=== PATIENT | female | born 1975 | race Caucasian/White ===

== ENCOUNTER 2017-04-27 14:22 | Emergency (ER) | payer BC ==
[2017-04-27 14:59] VITALS: BP 141/72
[2017-04-27] MEDS ORDERED: Lidocaine 1% 30 ML SDV INJECT ONE (15:11)
[2017-04-27] MEDS ORDERED: Bacitracin Oint 1 GM U/D Packet TOP ONE (15:11)
--- NOTE | 2017-04-27 15:16 | EDM.PDOC ---
ED HPI GENERAL MEDICAL PROBLEM - General Chief Complaint: Lower Extremity Injury/Pain Stated Complaint: [id number] MRSA IN LEG GETTING WORSE Time Seen by Provider: 04/27/17 15:05 Source of Information: Reports: Patient History Limitations: Reports: No Limitations - History of Present Illness INITIAL COMMENTS - FREE TEXT/NARRATIVE: This 41 yo female patient reports to the ED with an abscess to her right distal upper leg. The patient reports she was seen in the [facility] yesterday and was started on an antibiotic. The patient reports she has had 2 doses of Bactrim , but has continued to have increased pain. Onset Date: 04/23/17 Duration: Constant, Getting Worse Location: Reports: Lower Extremity, Right Quality: Reports: Ache, Dull Severity: Moderate Improves with: Reports: None Worsens with: Reports: None Associated Symptoms: Reports: No Other Symptoms Right Middle Leg Pain Score (Numeric/FACES): 6 - Related Data Allergies Allergy/AdvReac Type Severity Reaction Status Date / Time No Known Allergies Allergy Verified 04/27/17 14:55 Past Medical History - Past Health History Medical/Surgical History: Denies Medical/Surgical History - Infectious Disease History Infectious Disease History: Reports: MRSA - Past Surgical History Female Surgical History: Reports: Tubal Ligation, Other (See Below) Other Female Surgeries/Procedures: bladder mesh Social & Family History - Family History Family Medical History: Noncontributory - Tobacco Use Smoking Status *Q: Never Smoker Second Hand Smoke Exposure: No - Caffeine Use Caffeine Use: Reports: None - Recreational Drug Use Recreational Drug Use: No - Living Situation & Occupation Living situation: Reports: Occupation: Employed Review of Systems - Review of Systems Review Of Systems: ROS reveals no pertinent complaints other than HPI. ED EXAM, GENERAL - Physical Exam Exam: See Below Exam Limited By: No Limitations General Appearance: Alert, WD/WN, Moderate Distress Eye Exam: Bilateral Eye: EOMI, Normal Inspection, PERRL Ears: Normal External Exam, Normal Canal, Hearing Grossly Normal, Normal TMs Nose: Normal Inspection, Normal Mucosa, No Blood Throat/Mouth: Normal Inspection, Normal Lips, Normal Teeth, Normal Gums, Normal Oropharynx, Normal Voice, No Airway Compromise Head: Atraumatic, Normocephalic Neck: Normal Inspection, Supple, Non-Tender, Full Range of Motion Respiratory/Chest: No Respiratory Distress, Lungs Clear, Normal Breath Sounds, No Accessory Muscle Use, Chest Non-Tender Cardiovascular: Normal Peripheral Pulses, Regular Rate, Rhythm, No Edema, No Gallop, No JVD, No Murmur, No Rub GI/Abdominal: Normal Bowel Sounds, Soft, Non-Tender, No Organomegaly, No Distention, No Abnormal Bruit, No Mass (Female) Exam: Deferred Rectal (Female) Exam: Deferred Back Exam: Normal Inspection, Full Range of Motion, NT Extremities: Normal Range of Motion, No Pedal Edema, Normal Capillary Refill, Other (abscess to right inner distal thigh) Neurological: Alert, Oriented, CN II-XII Intact, Normal Cognition, Normal Gait, Normal Reflexes, No Motor/Sensory Deficits Psychiatric: Normal Affect, Normal Mood Skin Exam: Erythema, Increased Warmth Lymphatic: No Adenopathy ED TRAUMA EXTREMITY PROCEDURES - I&D Site: Right distal medial thigh Skin Prep: Providone-Iodine (Betadine), Isopropyl Alcohol (Alcohol) Local Anesthesia: Lidocaine: 1% Plain Local Anesthetic Volume: 4cc Area Incised With: 15 Blade Drainage: Purulent, Bloody, Moderate Amount Packed With: None Sterile Dressinx4(s) Complications: No Course - Vital Signs Last Recorded V/S: Last Vital Signs Temp 37.1 C 04/27/17 14:56 Pulse 76 04/27/17 14:56 Resp 16 04/27/17 14:56 BP 141/72 H 04/27/17 14:56 Pulse Ox 100 04/27/17 14:56 - Orders/Labs/Meds Orders: Active Orders 24 hr Category Date Time Status CULTURE BLOOD [BC] Stat Lab 04/27/17 15:42 Results CULTURE BLOOD [BC] Stat Lab 04/27/17 15:57 Received Blood Culture x2 Reflex Set [OM.PC] Stat Oth 04/27/17 15:35 Ordered Labs: Laboratory Tests 04/27/17 04/27/17 04/27/17 Range/Units 15:42 15:42 15:42 WBC 9.8 (5.0-10.0) 10^3/uL RBC 4.61 (4.2-5.4) 10^6/uL Hgb 12.1 (12.0-16.0) g/dL Hct 37.1 (37.0-47.0) % MCV 80.5 (80-100) fL MCH 26.2 L (27.0-34.0) pg MCHC 32.6 L (33.0-35.0) g/dL Plt Count 239 (150-450) 10^3/uL Neut % (Auto) 60.6 (42.2-75.2) % Lymph % (Auto) 31.3 (20.5-50.1) % Atkinson % (Auto) 7.5 (2-8) % Eos % (Auto) 0.4 L (1.0-3.0) % Baso % (Auto) 0.2 (0.0-1.0) % Sodium 135 (135-145) mmol/L Potassium 3.0 L (3.6-5.0) mmol/L Chloride 100 L (101-111) mmol/L Carbon Dioxide 22.0 (21.0-31.0) mmol/L Anion Gap 16.0 BUN 10 (7-18) mg/dL Creatinine 1.0 (0.6-1.3) mg/dL Est Cr Clr Drug Dosing 61.24 mL/min Estimated GFR (MDRD) > 60 BUN/Creatinine Ratio 10.00 Glucose 79 (74-105) mg/dL Lactic Acid 1.4 (0.5-2.2) mmol/L Calcium 9.3 (8.4-10.2) mg/dl Total Bilirubin 0.5 (0.2-1.0) mg/dL AST 26 (10-42) IU/L ALT 14 (10-60) IU/L Alkaline Phosphatase 54 (42-121) IU/L Total Protein 7.8 (6.7-8.2) g/dl Albumin 4.4 (3.2-5.5) g/dl Globulin 3.4 Albumin/Globulin Ratio 1.29 Meds: Medications Discontinued Medications Generic Name Dose Route Start Last Admin Trade Name Freq PRN Reason Stop Dose Admin Bacitracin 1 dose 04/27/17 15:11 04/27/17 15:26 Bacitracin Oint 1 Gm TOP 04/27/17 15:12 1 dose ONETIME ONE Administration Vancomycin HCl 1.5 gm/ Sodium 500 mls @ 334 mls/hr 04/27/17 15:36 04/27/17 16 :00 Chloride IV 04/27/17 17:05 334 mls/hr ONETIME ONE Administration Lidocaine HCl 30 ml 04/27/17 15:11 10/19/17 15:26 Xylocaine-Mpf 1% INJECT 04/27/17 15:12 30 ml ONETIME ONE Administration Departure - Departure Time of Disposition: 17:30 Disposition: Home, Self-Care 01 Condition: Fair Clinical Impression: Abscess - Discharge Information Instructions: Abscess, [id number] Forms: ED Department Discharge Care Plan Goals: The patient was advised of the examination and lab results during the visit. The patient's abscess was incised and drained while in the ED. The patient was given an IV dose of Vancomycin while in the ED. The patient was encouraged to continue with the Bactrim as directed. The patient should follow-up with her primary care facility or return to the ED for any additional symptoms or concerns. - My Orders Last 24 Hours: My Active Orders 04/27/17 15:35 Blood Culture x2 Reflex Set [OM.PC] Stat 04/27/17 15:42 CULTURE BLOOD [BC] Stat 04/27/17 15:57 CULTURE BLOOD [BC] Stat - Assessment/Plan Last 24 Hours: My Active Orders 04/27/17 15:35 Blood Culture x2 Reflex Set [OM.PC] Stat 04/27/17 15:42 CULTURE BLOOD [BC] Stat 04/27/17 15:57 CULTURE BLOOD [BC] Stat
[2017-04-27] MEDS ORDERED: Vancomycin 1.5 GM in Sodium Chloride 0.9% 500 ML IV ONE (15:36)
[2017-04-27 16:18] LABS: CHLORIDE,CL 100 mmol/L (101-111); SODIUM,NA 135 mmol/L (135-145)
== END 2017-04-27 17:37 | disposition home or self-care (01) ==
LOC: DL.ED 14:22
DX: L02.415 Cutaneous abscess of right lower limb (principal); Z86.14 Personal history of Methicillin resistant Staphylococcus aureus infection
CPT/HCPCS: 10060; 36415; 80053; 83605; 85025; 87040; 87070; 87077; 87186; 96365; 96366; 99283; J3370; J7040

== ENCOUNTER 2017-08-22 18:45 | Emergency (ER) | payer BC ==
[2017-08-22] MEDS ORDERED: Acetaminophen/HYDROcodone 325-10 MG Tab PO ONE ×2 (18:46→23:21)
[2017-08-22 19:26] VITALS: BP 137/88
[2017-08-22 22:40] LABS: CHLORIDE,CL 101 mmol/L (101-111); SODIUM,NA 135 mmol/L (135-145)
[2017-08-22] MEDS ORDERED: Iopamidol 612 MG/ML 75 ML Bottle IVPUSH ONE (22:47)
[2017-08-22] MEDS ORDERED: Ketorolac 30 MG/ML SDV IVPUSH ONE (23:18)
--- NOTE | 2017-08-22 23:34 | EDM.PDOC ---
ED HPI GENERAL MEDICAL PROBLEM - General Chief Complaint: Abdominal Pain Stated Complaint: [id number] LOW ABDOMIN PAIN Time Seen by Provider: 08/22/17 22:30 Source of Information: Reports: Patient - History of Present Illness INITIAL COMMENTS - FREE TEXT/NARRATIVE: lower abdominal pain on left worsening over past 4-5 days. No fevers, NO nausea , vomiting or diarrhea. Prior surgery with bladder mesh, Left Lower Abdomen Pain Score (Numeric/FACES): 8 - Related Data Allergies Allergy/AdvReac Type Severity Reaction Status Date / Time No Known Allergies Allergy Verified 08/22/17 19:13 Home Meds: Home Meds . [No Known Home Meds] 08/22/17 [History] Past Medical History - Past Health History Medical/Surgical History: Denies Medical/Surgical History Genitourinary History: Reports: Urinary Incontinence - Infectious Disease History Infectious Disease History: Reports: MRSA - Past Surgical History Female Surgical History: Reports: Tubal Ligation, Other (See Below) Other Female Surgeries/Procedures: bladder mesh Social & Family History - Family History Family Medical History: Noncontributory - Tobacco Use Smoking Status *Q: Unknown Ever Smoked Second Hand Smoke Exposure: No - Caffeine Use Caffeine Use: Reports: Tea - Recreational Drug Use Recreational Drug Use: No - Living Situation & Occupation Living situation: Reports: Occupation: Employed ED ROS GENERAL - Review of Systems Review Of Systems: ROS reveals no pertinent complaints other than HPI. ED EXAM, GI/ABD - Physical Exam Exam: See Below Exam Limited By: No Limitations General Appearance: Alert, Mild Distress Eyes: Bilateral: EOMI Ears: Normal External Exam Nose: Normal Inspection Throat/Mouth: Normal Inspection Head: Atraumatic, Normocephalic Neck: Normal Inspection Respiratory/Chest: No Respiratory Distress, Lungs Clear, Normal Breath Sounds Cardiovascular: Normal Peripheral Pulses, Regular Rate, Rhythm GI/Abdominal Exam: Normal Bowel Sounds, Soft, Tender (generalized greater LLQ). No: Distended, Guarding Back Exam: Normal Inspection Extremities: Normal Inspection Neurological: Alert, Oriented, Normal Cognition Psychiatric: Normal Affect Skin Exam: Warm, Dry, Intact, Normal Color Course - Vital Signs Last Recorded V/S: Last Vital Signs Temp 99.4 F 08/22/17 19:25 Pulse 75 08/22/17 19:25 Resp 18 08/22/17 19:25 BP 137/88 08/22/17 19:25 Pulse Ox 100 08/22/17 19:25 - Orders/Labs/Meds Labs: Laboratory Tests 08/22/17 08/22/17 08/22/17 Range/Units 19:12 19:12 22:07 WBC 12.3 H (5.0-10.0) 10^3/uL RBC 4.73 (4.2-5.4) 10^6/uL Hgb 12.4 (12.0-16.0) g/dL Hct 38.0 (37.0-47.0) % MCV 80.3 (80-100) fL MCH 26.2 L (27.0-34.0) pg MCHC 32.6 L (33.0-35.0) g/dL Plt Count 249 (150-450) 10^3/uL Neut % (Auto) 58.8 (42.2-75.2) % Lymph % (Auto) 34.2 (20.5-50.1) % Moca % (Auto) 6.4 (2-8) % Eos % (Auto) 0.5 L (1.0-3.0) % Baso % (Auto) 0.1 (0.0-1.0) % Sodium (135-145) mmol/L Potassium (3.6-5.0) mmol/L Chloride (101-111) mmol/L Carbon Dioxide (21.0-31.0) mmol/L Anion Gap BUN (7-18) mg/dL Creatinine (0.6-1.3) mg/dL Est Cr Clr Drug Dosing mL/min Estimated GFR (MDRD) BUN/Creatinine Ratio Glucose (74-105) mg/dL Lactic Acid (0.5-2.2) mmol/L Calcium (8.4-10.2) mg/dl Total Bilirubin (0.2-1.0) mg/dL AST (10-42) IU/L ALT (10-60) IU/L Alkaline Phosphatase (42-121) IU/L Total Protein (6.7-8.2) g/dl Albumin (3.2-5.5) g/dl Globulin Albumin/Globulin Ratio Amylase (28-100) U/L Lipase (22-51) U/L Urine Color Light yellow (YELLOW) Urine Appearance Clear (CLEAR) Urine pH 6.0 (5.0-9.0) Ur Specific Alger <= 1.005 (1.005-1.030) Urine Protein Negative (NEGATIVE) Urine Glucose (UA) Negative (NEGATIVE) Urine Ketones Negative (NEGATIVE) Urine Occult Blood Negative (NEGATIVE) Urine Nitrite Negative (NEGATIVE) Urine Bilirubin Negative (NEGATIVE) Urine Urobilinogen 0.2 (0.2-1.0) mg/dL Ur Leukocyte Esterase Small H (NEGATIVE) Urine RBC 0-5 /HPF Urine WBC 0-5 (0-5/HPF) /HPF Ur Epithelial Cells Rare /HPF Urine Bacteria Rare (0-FEW/HPF) /HPF Urine HCG, Qual Negative 08/22/17 08/22/17 08/22/17 Range/Units 22:07 22:07 22:07 WBC (5.0-10.0) 10^3/uL RBC (4.2-5.4) 10^6/uL Hgb (12.0-16.0) g/dL Hct (37.0-47.0) % MCV (80-100) fL MCH (27.0-34.0) pg MCHC (33.0-35.0) g/dL Plt Count (150-450) 10^3/uL Neut % (Auto) (42.2-75.2) % Lymph % (Auto) (20.5-50.1) % Moca % (Auto) (2-8) % Eos % (Auto) (1.0-3.0) % Baso % (Auto) (0.0-1.0) % Sodium 135 (135-145) mmol/L Potassium 3.9 (3.6-5.0) mmol/L Chloride 101 (101-111) mmol/L Carbon Dioxide 25.0 (21.0-31.0) mmol/L Anion Gap 12.9 BUN 15 (7-18) mg/dL Creatinine 0.9 (0.6-1.3) mg/dL Est Cr Clr Drug Dosing 68.05 mL/min Estimated GFR (MDRD) > 60 BUN/Creatinine Ratio 16.66 Glucose 91 (74-105) mg/dL Lactic Acid 0.8 (0.5-2.2) mmol/L Calcium 9.0 (8.4-10.2) mg/dl Total Bilirubin 0.4 (0.2-1.0) mg/dL AST 21 (10-42) IU/L ALT 14 (10-60) IU/L Alkaline Phosphatase 48 (42-121) IU/L Total Protein 7.5 (6.7-8.2) g/dl Albumin 4.2 (3.2-5.5) g/dl Globulin 3.3 Albumin/Globulin Ratio 1.27 Amylase 120 H (28-100) U/L Lipase 28 (22-51) U/L Urine Color (YELLOW) Urine Appearance (CLEAR) Urine pH (5.0-9.0) Ur Specific Alger (1.005-1.030) Urine Protein (NEGATIVE) Urine Glucose (UA) (NEGATIVE) Urine Ketones (NEGATIVE) Urine Occult Blood (NEGATIVE) Urine Nitrite (NEGATIVE) Urine Bilirubin (NEGATIVE) Urine Urobilinogen (0.2-1.0) mg/dL Ur Leukocyte Esterase (NEGATIVE) Urine RBC /HPF Urine WBC (0-5/HPF) /HPF Ur Epithelial Cells /HPF Urine Bacteria (0-FEW/HPF) /HPF Urine HCG, Qual Meds: Medications Discontinued Medications Generic Name Dose Route Start Last Admin Trade Name Freq PRN Reason Stop Dose Admin Hydrocodone Bitart/Acetaminophen 1 tab 08/22/17 23:21 08/22/17 23:27 [place] 325-10 Mg PO 08/22/17 23:22 1 tab ONETIME ONE Administration Hydrocodone Bitart/Acetaminophen Confirm 08/22/17 23:38 [place] 325-10 Mg Administered 08/22/17 23:39 Dose 2 tab .ROUTE .STK-MED ONE Iopamidol 75 ml 08/22/17 22:47 08/22/17 22:49 Isovue-300 (61%) IVPUSH 08/22/17 22:48 75 ml ONETIME ONE Administration Ketorolac Tromethamine 30 mg 08/22/17 23:18 08/22/17 23:28 Toradol IVPUSH 08/22/17 23:19 30 mg ONETIME ONE Administration - Radiology Interpretation Free Text/Narrative:: Abdomen Pelvis with contrast: Fluid density at right adenexa irregular in shape approximately 5x4cm is expected to reflect a summation of benign ovarian cysts and possibly physiogic free fluid. cyst. Irregular 2.6 x 3cm left adexexal fluid density with a soft thin tissue rim probably involuting corpus luteum Departure - Departure Time of Disposition: 23:32 Disposition: Home, Self-Care 01 Condition: Good Clinical Impression: Bilateral ovarian cysts Abdominal pain Qualifiers: Abdominal location: generalized Qualified Code(s): R10.84 - Generalized abdominal pain - Discharge Information Instructions: Ovarian Cyst, [id number] Referrals: PCP,Unobtain [Primary Care Provider] - Forms: ED Department Discharge Additional Instructions: ibuprofen 600mg every 6 hours as needed for moderate pain hydrocodone 10/325 one every 6 hours for severe pain #2 Clinic follow up 2-3 days [employer] appointment as scheduled tomorrow
[2017-08-22] MEDS ORDERED: Acetaminophen/HYDROcodone 325-10 MG Tab ONE (23:38)
== END 2017-08-22 23:49 | disposition home or self-care (01) ==
LOC: DL.ED 18:45
DX: N83.202 Unspecified ovarian cyst, left side (principal); N83.201 Unspecified ovarian cyst, right side; Z96.0 Presence of urogenital implants
CPT/HCPCS: 36415; 74177; 80053; 81001; 81025; 82150; 83605; 83690; 85025; 96374; 99284; A9270; J1885; Q9967

== ENCOUNTER 2019-09-18 06:42 | Day surgery (SDC) | payer BC ==
[~2019-09-18 06:42] MED LIST: Midazolam 1 MG/ML 2 ML SDV ONE; fentaNYL 100 MCG/2 ML SDV ONE
[2019-09-18] MEDS ORDERED: fentaNYL 100 MCG/2 ML SDV IV ONE ×3 (06:43→07:57)
[2019-09-18] MEDS ORDERED: Midazolam 1 MG/ML 2 ML SDV IV ONE ×10 (06:43→08:04)
[2019-09-18] MEDS ORDERED: Dextrose 5%-0.45% NaCl 1,000 ML IV SCH (07:30)
[2019-09-18] MEDS ORDERED: Sodium Chloride 0.9% 1,000 ML IV ONE (08:14)
[2019-09-18 11:02] VITALS: BP 123/73; PULSE 64
--- NOTE | 2019-09-18 13:59 | OR ---
DATE: 09/18/2019 PREOPERATIVE DIAGNOSIS: Intermittent rectal bleeding. POSTOPERATIVE DIAGNOSIS: Intermittent rectal bleeding. PROCEDURES: Total colonoscopy. ANESTHESIA: Conscious sedation with IV Versed and fentanyl. SPECIMEN: None. OPERATIVE FINDINGS: Diffuse melanosis coli, especially on the right side of the colon. No other abnormalities noted. INDICATIONS FOR PROCEDURE: This 44-year-old female has intermittent bright red rectal bleeding. She also has intermittent constipation. PROCEDURE IN DETAIL: After adequate preparation, a colonoscope was inserted into the rectum. This was easily passed all the way to the cecum. Confirmation of the cecum was made by visualization of the ileocecal valve and by palpation of the right lower quadrant. The bowel prep was adequate. There was some retained fluid. This was easily suctioned clear to be able to see the entire colon. She has no evidence of colitis, diverticulosis, masses, polyps, or internal hemorrhoids. Air was suctioned from the colon and the scope removed. [facility] /[id number]
== END 2019-09-18 10:20 | disposition home or self-care (01) ==
LOC: DL.ENDO 06:42
PROVIDERS: ATTEND Surgery
DX: K62.5 Hemorrhage of anus and rectum (principal)
CPT/HCPCS: 81025; G0121; J2250; J3010; J7030; J7042

== ENCOUNTER 2019-12-24 14:14 | Emergency (ER) | payer BC ==
[2019-12-24 14:46] VITALS: BP 124/69; PULSE 83
--- NOTE | 2019-12-24 15:20 | CR ---
EXAMINATION: Ankle Min 3V Lt SEX: Female AGE: 44 years CLINICAL HISTORY: 44-year-old female twisted ankle on stair. INTERPRETATION: Mild soft tissue swelling. No fracture or dislocation left ankle. Tibiotalar mortise joints symmetrically intact. No arthritic degenerative changes. Tiny heel spurs at insertion plantar aponeurosis and Achilles tendon of the os calcis. CONCLUSION: Sprain.
[2019-12-24] MEDS: Ibuprofen 600 MG Tab PO ONE ×2 (15:42→15:47)
--- NOTE | 2019-12-24 15:58 | EDM.PDOC ---
Scribed by Chasity Gaines 12/24/19 0653 for Thania Mac NP ED HPI GENERAL MEDICAL PROBLEM - General Chief Complaint: Lower Extremity Injury/Pain Stated Complaint: FELL/INJURED ANKLE Time Seen by Provider: 12/24/19 15:29 Source of Information: Reports: Patient, RN, RN Notes Reviewed History Limitations: Reports: No Limitations - History of Present Illness INITIAL COMMENTS - FREE TEXT/NARRATIVE: Patient presents to ER with complaint of left ankle pain. States she twisted her ankle going down the steps at home. States she rolled the ankle and landed on her buttocks. She rates her pain 7/10. Onset: Today Duration: Getting Worse Location: Reports: Lower Extremity, Left Quality: Reports: Ache Severity: Moderate Improves with: Reports: None Worsens with: Reports: None Associated Symptoms: Reports: No Other Symptoms - Related Data Allergies Allergy/AdvReac Type Severity Reaction Status Date / Time Latex, Natural Rubber Allergy Rash Verified 12/24/19 15:14 Home Meds: Home Meds Docusate Sodium [Stool Softener] 200 mg PO BID 09/16/19 [History] Mecobalamin [B12 Active] 500 mcg PO DAILY 09/16/19 [History] Venlafaxine [Effexor] 150 mg PO DAILY 09/16/19 [History] Ergocalciferol (Vitamin D2) [Vitamin D2] 50,000 units PO ASDIRECTED 09/17/19 [ History] Ferrous Sulfate [Iron] 325 mg PO DAILY 09/17/19 [History] Past Medical History - Past Health History Medical/Surgical History: Denies Medical/Surgical History HEENT History: Reports: Impaired Vision Cardiovascular History: Reports: None Respiratory History: Reports: None Gastrointestinal History: Reports: Chronic Constipation Genitourinary History: Reports: Urinary Incontinence [employer] History: Reports: Musculoskeletal History: Reports: None Neurological History: Reports: None Psychiatric History: Reports: Anxiety Endocrine/Metabolic History: Reports: Hypothyroidism, Obesity/BMI 30+, Vitamin D Deficiency, Other (See Below) Other Endocrine/Metabolic History: JUAN CARLOS'S THYROIDITIS Hematologic History: Reports: None Immunologic History: Reports: None Oncologic (Cancer) History: Reports: None Dermatologic History: Reports: None - Infectious Disease History Infectious Disease History: Reports: Chicken Pox, MRSA - Past Surgical History Head Surgeries/Procedures: Reports: None HEENT Surgical History: Reports: None Cardiovascular Surgical History: Reports: None Respiratory Surgical History: Reports: None GI Surgical History: Reports: None Female Surgical History: Reports: Cystoscopy, Tubal Ligation, Other (See Below) Other Female Surgeries/Procedures: bladder mesh Endocrine Surgical History: Reports: None Neurological Surgical History: Reports: Lumbar Spine Musculoskeletal Surgical History: Reports: None Oncologic Surgical History: Reports: None Dermatological Surgical History: Reports: None Social & Family History - Family History Family Medical History: Noncontributory - Tobacco Use Smoking Status *Q: Never Smoker - Caffeine Use Caffeine Use: Reports: None - Recreational Drug Use Recreational Drug Use: No - Living Situation & Occupation Living situation: Reports: Occupation: Employed Review of Systems - Review of Systems Review Of Systems: Comprehensive ROS is negative, except as noted in HPI. ED EXAM, GENERAL - Physical Exam Exam: See Below Exam Limited By: No Limitations General Appearance: Alert, Mild Distress Eye Exam: Bilateral Eye: EOMI, Normal Inspection, PERRL Ears: Normal External Exam, Normal Canal, Hearing Grossly Normal, Normal TMs Nose: Normal Inspection, Normal Mucosa, No Blood Throat/Mouth: Normal Inspection, Normal Lips, Normal Teeth, Normal Gums, Normal Oropharynx, Normal Voice, No Airway Compromise Head: Atraumatic, Normocephalic Neck: Normal Inspection, Supple, Non-Tender, Full Range of Motion Respiratory/Chest: No Respiratory Distress, Lungs Clear, Normal Breath Sounds, No Accessory Muscle Use, Chest Non-Tender Cardiovascular: Normal Peripheral Pulses, Regular Rate, Rhythm, No Edema, No Gallop, No JVD, No Murmur, No Rub GI/Abdominal: Normal Bowel Sounds, Soft, Non-Tender, No Organomegaly, No Distention, No Abnormal Bruit, No Mass (Female) Exam: Deferred Rectal (Female) Exam: Deferred Back Exam: Normal Inspection, Full Range of Motion, NT Extremities: Other (left ankle, decreased range of motion, and swelling) Neurological: Alert, Oriented, CN II-XII Intact, Normal Cognition, Normal Gait, Normal Reflexes, No Motor/Sensory Deficits Psychiatric: Normal Affect, Normal Mood Skin Exam: Warm, Dry, Intact, Normal Color, No Rash Lymphatic: No Adenopathy Course - Vital Signs Last Recorded V/S: Last Vital Signs Temp 98.1 F 12/24/19 14:41 Pulse 83 12/24/19 14:41 Resp 18 06/16/20 14:41 BP 124/69 12/24/19 14:41 Pulse Ox 99 12/24/19 14:41 - Orders/Labs/Meds Meds: Medications Discontinued Medications Generic Name Dose Route Start Last Admin Trade Name Jim PRN Reason Stop Dose Admin Ibuprofen 600 mg 12/24/19 15:34 12/24/19 15:47 Motrin PO 12/24/19 15:35 600 mg ONETIME ONE Administration - Radiology Interpretation Free Text/Narrative:: Left ankle: Sprain. See rad report. - Re-Assessments/Exams Free Text/Narrative Re-Assessment/Exam: 12/24/19 15:57 Patient declined crutches at this time. Departure - Departure Time of Disposition: 15:41 Disposition: Home, Self-Care 01 Condition: Fair Clinical Impression: Sprain of ankle, left Qualifiers: Encounter type: initial encounter Involved ligament of ankle: unspecified ligament Qualified Code(s): S93.402A - Sprain of unspecified ligament of left ankle, initial encounter - Discharge Information *PRESCRIPTION DRUG MONITORING PROGRAM REVIEWED*: No *COPY OF PRESCRIPTION DRUG MONITORING REPORT IN PATIENT NBA: No Instructions: Crutch Use, Adult, [id number], How to Use Cold Therapy, Easy-to -Read, Ankle Sprain, [id number], Muscle Strain, [id number], Elastic Bandage and RICE Therapy Forms: ED Department Discharge Additional Instructions: Elevate and Ice the ankle as tolerated Use crutches for the first few days Begin gradually trying to bear weight May use Tylenol and/or Ibuprofen as directed for pain Follow up with your primary care facility if no improvement Sepsis Event Note (ED) - Evaluation Sepsis Screening Result: No Definite Risk - Focused Exam Vital Signs: Vital Signs Temp Pulse Resp BP Pulse Ox 12/24/19 14:41 98.1 F 83 18 124/69 99 I have read and agree with the documentation that has been completed regarding this visit. By signing this record, I attest that the documentation was completed in my physical presence and is an accurate record of the encounter.
== END 2019-12-24 15:53 | disposition home or self-care (01) ==
LOC: DL.ED 14:14
DX: S93.402A Sprain of unspecified ligament of left ankle, initial encounter (principal); F41.9 Anxiety disorder, unspecified; E66.9 Obesity, unspecified; Z68.30 Body mass index [BMI] 30.0-30.9, adult; Z91.040 Latex allergy status; Z79.899 Other long term (current) drug therapy; X50.1XXA Overexertion from prolonged static or awkward postures, initial encounter; Y92.009 Unspecified place in unspecified non-institutional (private) residence as the place of occurrence of the external cause
CPT/HCPCS: 73610; 99283; A9270

== ENCOUNTER 2021-02-26 19:12 | Emergency (ER) | payer BC ==
[2021-02-26 19:36] VITALS: BP 155/89; PULSE 81
[2021-02-26] MEDS ORDERED: Bacitracin/Neomycin/Polymyxin B Oint 28.4 GM Tube TOP ONE (19:49)
--- NOTE | 2021-02-26 20:07 | EDM.PDOC ---
ED HPI GENERAL MEDICAL PROBLEM - General Chief Complaint: Wound Recheck Stated Complaint: LEFT LEG GOT BADGES WET, NEED SOMEONE TO LOOK AT I Time Seen by Provider: 02/26/21 20:02 - History of Present Illness INITIAL COMMENTS - FREE TEXT/NARRATIVE: Patient is an unfortunate 45-year-old female who presents emerged part today with complaint of left ankle/foot wound recheck. The patient reports that she had surgery on her ankle 8 days ago and reports that she was in the shower last night and got her entire cast and dressings soaked and so she went to the nurse call at the clinic today they changed outer dressing and redressed everything she reports they put a yellow medicated dressing on her wound when she got home it started burning so she took it off and when she continued to have a burning sensation she became concerned and presented emergency department for further evaluation she has no fever no chills no chest pain no cough no congestion, distal neurovascular is intact Left Leg Pain Score (Numeric/FACES): 9 - Related Data Allergies Allergy/AdvReac Type Severity Reaction Status Date / Time Latex, Natural Rubber Allergy Rash Verified 02/26/21 19:42 Home Meds: Home Meds Docusate Sodium [Stool Softener] 200 mg PO BID 09/16/19 [History] Mecobalamin [B12 Active] 500 mcg PO DAILY 09/16/19 [History] Venlafaxine [Effexor] 150 mg PO DAILY 09/16/19 [History] Ergocalciferol (Vitamin D2) [Vitamin D2] 50,000 units PO ASDIRECTED 09/17/19 [History] Ferrous Sulfate [Iron] 325 mg PO DAILY 09/17/19 [History] Past Medical History - Past Health History Medical/Surgical History: Denies Medical/Surgical History HEENT History: Reports: Impaired Vision Cardiovascular History: Reports: None Respiratory History: Reports: None Gastrointestinal History: Reports: Chronic Constipation Genitourinary History: Reports: Urinary Incontinence 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: Musculoskeletal History: Reports: None Neurological History: Reports: None Psychiatric History: Reports: Anxiety Endocrine/Metabolic History: Reports: Hypothyroidism, Obesity/BMI 30+, Vitamin D Deficiency, Other (See Below) Other Endocrine/Metabolic History: JUAN CARLOS'S THYROIDITIS Hematologic History: Reports: None Immunologic History: Reports: None Oncologic (Cancer) History: Reports: None Dermatologic History: Reports: None - Infectious Disease History Infectious Disease History: Reports: Chicken Pox, MRSA - Past Surgical History Head Surgeries/Procedures: Reports: None HEENT Surgical History: Reports: None Cardiovascular Surgical History: Reports: None Respiratory Surgical History: Reports: None GI Surgical History: Reports: None Female Surgical History: Reports: Cystoscopy, Tubal Ligation, Other (See Below) Other Female Surgeries/Procedures: bladder mesh Endocrine Surgical History: Reports: None Neurological Surgical History: Reports: Lumbar Spine Musculoskeletal Surgical History: Reports: None Oncologic Surgical History: Reports: None Dermatological Surgical History: Reports: None Social & Family History - Family History Family Medical History: No Pertinent Family History - Tobacco Use Tobacco Use Status *Q: Never Tobacco User Second Hand Smoke Exposure: No - Caffeine Use Caffeine Use: Reports: Soda - Recreational Drug Use Recreational Drug Use: No - Living Situation & Occupation Living situation: Reports: Occupation: Employed ED ROS GENERAL - Review of Systems Review Of Systems: See Below Constitutional: Denies: Fever, Chills Skin: Reports: Other (wound recheck) Neurological: Reports: Other (burnign sensation) ED EXAM, SKIN/RASH Exam: See Below Exam Limited By: No Limitations General Appearance: Alert, WD/WN, No Apparent Distress Throat/Mouth: Normal Inspection, Normal Lips, Normal Teeth, Normal Gums, Normal Oropharynx, Normal Voice, No Airway Compromise Neck: Normal Inspection, Supple, Non-Tender, Full Range of Motion Respiratory/Chest: No Respiratory Distress, Lungs Clear, Normal Breath Sounds, No Accessory Muscle Use, Chest Non-Tender Cardiovascular: Normal Peripheral Pulses, Regular Rate, Rhythm, No Edema, No Gallop, No JVD, No Murmur, No Rub GI/Abdominal: Normal Bowel Sounds, Soft, Non-Tender, No Organomegaly, No Distention, No Abnormal Bruit, No Mass Back Exam: Normal Inspection, Full Range of Motion, NT Extremities: Other (Surgical incision to left heel and left Achilles are well approximated, closed with sutures, good adhesions, healing well, no surrounding erythema, no evidence of infection, mild ecchymosis over the medial malleolus, distal neurovascular intact) Neurological: Alert, Oriented, CN II-XII Intact, Normal Cognition, Normal Gait, Normal Reflexes, No Motor/Sensory Deficits Skin: Warm, Dry, Intact ED WOUND PROCEDURES - Additional/Other Procedure(s) Other (Free Text) Procedure(s): Wound was cleaned and dressed, with MARCE and nonstick bandage, a posterior Ortho- Glass splint was applied, patient tolerated procedure well, post splint application distal neurovascular is intact Course - Vital Signs Last Recorded V/S: Last Vital Signs Temp 98.2 F 02/26/21 19:35 Pulse 81 02/26/21 19:35 Resp 18 02/26/21 19:35 BP 155/89 H 02/26/21 19:35 Pulse Ox 98 02/26/21 19:35 - Orders/Labs/Meds Meds: Medications Discontinued Medications Generic Name Dose Route Start Last Admin Trade Name Freq PRN Reason Stop Dose Admin Neomycin/Polymyxin/Bacitracin 2 gm 02/26/21 19:49 02/26/21 20:01 Bacitracin/Neomycin/Polymyxin B Oint 28.4 Gm Tube TOP 02/26/21 19:50 1 dose ONETIME ONE Administration Departure - Departure Time of Disposition: 20:04 Disposition: DC[facility] Condition: Good Clinical Impression: Encounter for wound re-check - Discharge Information *PRESCRIPTION DRUG MONITORING PROGRAM REVIEWED*: No *COPY OF PRESCRIPTION DRUG MONITORING REPORT IN PATIENT NBA: No Instructions: Wound Check Additional Instructions: Home, rest, adequate fluids, return as needed for any worsening condition Sepsis Event Note (ED) - Evaluation Sepsis Screening Result: No Definite Risk - Focused Exam Vital Signs: Vital Signs Temp Pulse Resp BP Pulse Ox 02/26/21 19:35 98.2 F 81 18 155/89 H 98
== END 2021-02-26 20:33 | disposition home or self-care (01) ==
LOC: DL.ED 19:12
DX: Z48.00 Encounter for change or removal of nonsurgical wound dressing (principal); E66.9 Obesity, unspecified; Z91.040 Latex allergy status; Z68.35 Body mass index [BMI] 35.0-35.9, adult; Z79.899 Other long term (current) drug therapy
CPT/HCPCS: 29515; 99282; 99282-25; A9270-GY

== ENCOUNTER 2021-11-08 11:40 | Emergency (ER) | payer BC ==
[2021-11-08 12:39] VITALS: BP 146/83; PULSE 85
== END 2021-11-08 13:57 ==
LOC: DL.ED 11:40
DX: R10.9 Unspecified abdominal pain (principal); Z53.21 Procedure and treatment not carried out due to patient leaving prior to being seen by health care provider

== ENCOUNTER 2021-11-08 15:49 | Emergency (ER) | payer BC ==
[2021-11-08] MEDS ORDERED: Iopamidol 612 MG/ML 100 ML Bottle IVPUSH ONE (16:03)
[2021-11-08] MEDS ORDERED: HYDROmorphone 1 MG/ML Syringe IVPUSH ONE (16:04)
[2021-11-08] MEDS ORDERED: Sodium Chloride 0.9% 1,000 ML IV ONE (16:04)
[2021-11-08] MEDS ORDERED: Sodium Chloride 0.9% 10 ML Syringe FLUSH PRN (16:04)
[2021-11-08] MEDS ORDERED: Ondansetron 4 MG/2 ML SDV IV ONE (16:04)
[2021-11-08 16:53] LABS: ANION GAP 11.9 mEq/L (7-13); CHLORIDE,CL 98 mmol/L (98-107); SODIUM,NA 135 mmol/L (136-145)
[2021-11-08 17:04] VITALS: BP 149/84; PULSE 83
[2021-11-08] MEDS ORDERED: Lactulose Soln 10 GM/15 ML 30 ML UD Cup PO ONE (17:39)
[2021-11-08] MEDS ORDERED: Bisacodyl 5 MG Tab PO ONE (17:40)
== END 2021-11-08 18:10 | disposition home or self-care (01) ==
LOC: DL.ED 15:49
DX: K59.09 Other constipation (principal); E03.9 Hypothyroidism, unspecified; E66.9 Obesity, unspecified; Z68.41 Body mass index [BMI] 40.0-44.9, adult; Z91.040 Latex allergy status; Z91.09 Other allergy status, other than to drugs and biological substances; Z79.899 Other long term (current) drug therapy
CPT/HCPCS: 36415; 74177; 80053; 82150; 83605; 83690; 85025; 86140; 96374; 96375; 99284; A9270; J1170; J2405; J3490; J7030; Q9967

== ENCOUNTER 2021-12-23 07:24 | Day surgery (SDC) | payer BC ==
[2021-12-23] MEDS ORDERED: fentaNYL 100 MCG/2 ML SDV IV ONE ×3 (07:25→08:41)
[2021-12-23] MEDS ORDERED: Midazolam 1 MG/ML 2 ML SDV IV ONE ×3 (07:25→08:42)
[2021-12-23] MEDS ORDERED: Dextrose 5%-0.45% NaCl 1,000 ML IV SCH (07:30)
[2021-12-23 10:45] VITALS: PULSE 66
[2021-12-23 10:46] VITALS: BP 117/69
== END 2021-12-23 10:49 | disposition home or self-care (01) ==
LOC: DL.ENDO 07:24
PROVIDERS: ATTEND Internal Medicine Gastroenterology
DX: R10.13 Epigastric pain (principal); R14.0 Abdominal distension (gaseous); F41.1 Generalized anxiety disorder; F32.A Depression, unspecified; E55.9 Vitamin D deficiency, unspecified; G47.33 Obstructive sleep apnea (adult) (pediatric); K59.09 Other constipation; F17.200 Nicotine dependence, unspecified, uncomplicated; E66.09 Other obesity due to excess calories; M19.90 Unspecified osteoarthritis, unspecified site; Z91.040 Latex allergy status; Z90.711 Acquired absence of uterus with remaining cervical stump; Z98.890 Other specified postprocedural states; Z01.812 Encounter for preprocedural laboratory examination; Z20.822 Contact with and (suspected) exposure to COVID-19; Z68.41 Body mass index [BMI] 40.0-44.9, adult
CPT/HCPCS: 43239; 87077; 87635; J2250; J3010; J7042; U0002

== ENCOUNTER 2022-08-22 20:32 | Emergency (ER) | payer BC ==
[2022-08-22 21:05] VITALS: BP 156/81; PULSE 74
[2022-08-22 21:24] LABS: ANION GAP 13.3 mEq/L (7-13)
[2022-08-22 22:08] LABS: AMPHETAMINES,URINE NEGATIVE (NEGATIVE); BARBITURATES,URINE NEGATIVE (NEGATIVE); BENZODIAZEPINE,URINE NEGATIVE (NEGATIVE); MDMA (ECSTASY), URINE NEGATIVE (NEGATIVE); METHADONE,URINE NEGATIVE (NEGATIVE); METHAMPHETAMINES,URINE NEGATIVE (NEGATIVE); OPIATES,URINE NEGATIVE (NEGATIVE); OXYCODONE,URINE NEGATIVE (NEGATIVE); PHENCYCLIDINE,URINE NEGATIVE (NEGATIVE); TCA,URINE NEGATIVE (NEGATIVE)
== END 2022-08-22 22:00 | disposition home or self-care (01) ==
LOC: DL.ED 20:32
DX: R00.2 Palpitations (principal); K21.9 Gastro-esophageal reflux disease without esophagitis; E66.9 Obesity, unspecified; Z68.39 Body mass index [BMI] 39.0-39.9, adult; Z91.040 Latex allergy status; Z91.09 Other allergy status, other than to drugs and biological substances; Z79.899 Other long term (current) drug therapy
CPT/HCPCS: 36415; 71045; 80053; 80305-QW; 81001; 83605; 84484; 85025; 87040; 87086; 93005; 93010; 99284; 99285

== ENCOUNTER 2022-11-25 15:56 | Emergency (ER) | payer BC ==
[2022-11-25 16:07] VITALS: BP 173/97; PULSE 92
[2022-11-25 16:47] LABS: BASOPHILS PERCENT AUTO 0.3 % (0.0-1.0); EOSINOPHILS PERCENT AUTO 3.6 % (1.0-3.0); HEMATOCRIT 37.8 % (37.0-47.0); HEMOGLOBIN 12.4 g/dL (12.0-16.0); LYMPHOCYTES PERCENT AUTO 37.5 % (20.5-50.1); MEAN CORPUSCULAR HEMOGLOBIN 25.9 pg (27.0-34.0); MEAN CORPUSCULAR HGB CONC 32.8 g/dL (33.0-35.0); MEAN CORPUSCULAR VOLUME 78.9 fL (80-100); MONOCYTES PERCENT AUTO 9.3 % (2-8); NEUTROPHILS PERCENT AUTO 49.3 % (42.2-75.2); PLATELET COUNT,PLT 264 10^3/uL (150-450); RED BLOOD CELL COUNT 4.79 10^6/uL (4.2-5.4)
[2022-11-25 17:12] LABS: ALBUMIN 3.8 g/dL (3.4-5.0); ANION GAP 13.6 mEq/L (7-13); BILIRUBIN TOTAL 0.3 mg/dL (0.2-1.0); CALCIUM 9.2 mg/dL (8.5-10.1); CREATININE 1.09 mg/dL (0.55-1.02); EST CRCL DRUG DOSING (CG) 52.78 mL/min; POTASSIUM,K 3.6 mmol/L (3.5-5.1); PROTEIN TOTAL,TP 7.5 g/dL (6.4-8.2)
[2022-11-25] MEDS ORDERED: Iopamidol 612 MG/ML 100 ML Bottle IVPUSH ONE (18:31)
[2022-11-25] MEDS ORDERED: Iopamidol 755 Mg/ML 100 ML Bottle IVPUSH ONE (18:33)
[2022-11-25 19:20] LABS: APPEARANCE,URINE CLEAR (CLEAR); BILIRUBIN,URINE NEGATIVE (NEGATIVE); COLOR,URINE YELLOW (YELLOW); GLUCOSE,URINE NEGATIVE (NEGATIVE); KETONES,URINE NEGATIVE (NEGATIVE); LEUKOCYTE ESTERASE,URINE NEGATIVE (NEGATIVE); NITRITE,URINE NEGATIVE (NEGATIVE); OCCULT BLOOD,URINE NEGATIVE (NEGATIVE); PROTEIN,URINE NEGATIVE (NEGATIVE); UROBILINOGEN,URINE 0.2 mg/dL (0.2-1.0)
[2022-11-25] MEDS ORDERED: Morphine 2 MG/ML SYRINGE IM ONE (21:05)
== END 2022-11-25 21:39 | disposition home or self-care (01) ==
LOC: DL.ED 15:56
DX: M79.601 Pain in right arm (principal); R60.0 Localized edema; K21.9 Gastro-esophageal reflux disease without esophagitis; E03.9 Hypothyroidism, unspecified; E66.9 Obesity, unspecified; Z68.36 Body mass index [BMI] 36.0-36.9, adult; Z91.040 Latex allergy status; Z91.048 Other nonmedicinal substance allergy status; Z79.899 Other long term (current) drug therapy
CPT/HCPCS: 36415; 73201; 80053; 81003; 85025; 93971; 96372; 99284; J2270

== ENCOUNTER 2024-08-02 11:45 | Emergency (ER) | payer OTHER ==
[2024-08-02 12:11] LABS: BASOPHILS PERCENT AUTO 0.1 % (0.0-1.0); EOSINOPHILS PERCENT AUTO 2.2 % (1.0-3.0); HEMATOCRIT 42.3 % (37.0-47.0); HEMOGLOBIN 13.6 g/dL (12.0-16.0); LYMPHOCYTES PERCENT AUTO 29.1 % (20.5-50.1); MEAN CORPUSCULAR HEMOGLOBIN 26.8 pg (27.0-34.0); MEAN CORPUSCULAR HGB CONC 32.2 g/dL (33.0-35.0); MEAN CORPUSCULAR VOLUME 83.3 fL (80-100); MONOCYTES PERCENT AUTO 7.7 % (2-8); NEUTROPHILS PERCENT AUTO 60.9 % (42.2-75.2); PLATELET COUNT,PLT 303 10^3/uL (150-450); RED BLOOD CELL COUNT 5.08 10^6/uL (4.2-5.4); WHITE BLOOD CELL COUNT,WBC 7.4 10^3/uL (5.0-10.0)
[2024-08-02 12:14] LABS: APPEARANCE,URINE CLEAR (CLEAR); BILIRUBIN,URINE NEGATIVE (NEGATIVE); COLOR,URINE YELLOW (YELLOW); GLUCOSE,URINE NEGATIVE (NEGATIVE); KETONES,URINE NEGATIVE (NEGATIVE); LEUKOCYTE ESTERASE,URINE NEGATIVE (NEGATIVE); NITRITE,URINE NEGATIVE (NEGATIVE); OCCULT BLOOD,URINE NEGATIVE (NEGATIVE); PROTEIN,URINE NEGATIVE (NEGATIVE); UROBILINOGEN,URINE 0.2 mg/dL (0.2-1.0)
[2024-08-02] MEDS: Lactated Ringers 1,000 ML IV ONE (12:19)
[2024-08-02 12:36] LABS: ALBUMIN 3.8 g/dL (3.4-5.0); ANION GAP 8.9 mEq/L (7-13); BILIRUBIN TOTAL 0.3 mg/dL (0.2-1.0); BUN/CREATININE RATIO 13.4 (No establ ref range); CALCIUM 9.2 mg/dL (8.5-10.1); CREATININE 0.97 mg/dL (0.55-1.02); EST CRCL DRUG DOSING (CG) 68.97 mL/min; MAGNESIUM 2.3 mg/dL (1.8-2.4); POTASSIUM,K 3.9 mmol/L (3.5-5.1); PROTEIN TOTAL,TP 7.5 g/dL (6.4-8.2); T4 FREE 1.01 ng/dL (0.76-1.46); TSH ULTRASENSITIVE 1.39 uIU/mL (0.36-3.74)
[2024-08-02 14:40] VITALS: BP 146/87; PULSE 63
== END 2024-08-02 14:39 | disposition home or self-care (01) ==
LOC: DL.ED 11:45
DX: R00.2 Palpitations (principal); R55 Syncope and collapse; K21.9 Gastro-esophageal reflux disease without esophagitis; E03.9 Hypothyroidism, unspecified; E66.9 Obesity, unspecified; Z68.30 Body mass index [BMI] 30.0-30.9, adult; Z90.710 Acquired absence of both cervix and uterus; Z91.040 Latex allergy status; Z91.048 Other nonmedicinal substance allergy status; Z79.890 Hormone replacement therapy; Z79.899 Other long term (current) drug therapy
CPT/HCPCS: 36415; 71045; 80053; 81003; 81025; 83690; 83735; 84439; 84443; 84484; 85025; 93005; 96360; 99285; J7120